=== PATIENT | female | born 1970 | race Caucasian/White ===

== ENCOUNTER 2017-09-01 21:41 | Inpatient (IN) | payer OTHER, MEDICAID ==
[~2017-09-01] VITALS: Ht 167.6 cm; Wt 80.3 kg
[~2017-09-01 21:41] MED LIST: BACL10TA PO; SERT50 PO
[2017-09-01 22:03] VITALS: BP 113/59; PULSE 87; RESP 20; TEMP 98.4; O2SAT 100
--- NOTE | 2017-09-01 22:14 | PD ---
HPI Chief Complaint: Billings[place] act Time Seen by Provider: 21:48 Travel History International Travel<30 days: No Contact w/Intl Traveler<30days: No Traveled to known affect area: No History of Present Illness HPI 47-year-old white female presents to emergency department under Billings[place] act by PD. Patient has a history of MS and is currently going through a divorce with her . She had informed her niece that she had contemplated burning the house down. She states that she has nothing to live for. Her is caring for her 17-year-old son and her 10-year-old son is in foster care. She is assisted at the house by her niece. Patient denies any acute medical complaints. She states that she is frustrated and does not truly want to hurt herself or hurt anyone. Patient is depressed regarding her separation from her and the ongoing proceedings. PFSH Past Medical History Narrative Medical Depression, multiple sclerosis Bipolar Disorder: Yes Depression: Yes Psychiatric: Yes (pt has been diagnosed with depression) Tetanus Vaccination: < 5 Years Past Surgical History Surgical History: No Previous Surgery Social History Alcohol Use: No Tobacco Use: Yes Substance Use: No Allergies-Medications (Allergen,Severity, Reaction): Coded Allergies: penicillin G (Unverified Allergy, Unknown, 05/07/17) Reported Meds & Prescriptions Reported Meds & Active Scripts Active Zoloft (Sertraline HCl) 50 Mg Tab 50 Mg PO DAILY Lioresal 10 Mg Tab (Baclofen) 10 Mg Tab 10 Mg PO TID Review of Systems General / Constitutional: No: Fever Eyes: No: Visual changes HENT: No: Headaches Cardiovascular: No: Chest Pain or Discomfort Respiratory: No: Shortness of Breath Gastrointestinal: No: Abdominal Pain Genitourinary: No: Dysuria Musculoskeletal: Positive: Arthralgias, Limited ROM, Weakness, No: Pain Skin: No Rash Neurologic: Positive: Weakness, Focal Abnormalities, Coordination Problem Psychiatric: Positive: Depression, Mood Disorder, No: Anxiety, Suicidal Ideations, Disorder of Thought, Substance Abuse, Homicidal Ideation Endocrine: No: Polydipsia Hematologic/Lymphatic: No: Easy Bruising Physical Exam Narrative GENERAL: Well-nourished, well-developed patient. Patient has mobility issues due to her MS. SKIN: Warm and dry. HEAD: Normocephalic and atraumatic. EYES: No scleral icterus. No injection or drainage. ENT: No nasal drainage noted. Mucous membranes pink. Airway patent. Fractures of tooth #9 and 10 chronically NECK: Supple, trachea midline. Moves head freely without obvious discomfort. CARDIOVASCULAR: Regular rate and rhythm without murmurs, gallops, or rubs. RESPIRATORY: Breath sounds equal bilaterally. No accessory muscle use. GASTROINTESTINAL: Abdomen soft, non-tender, nondistended. EXTREMITIES: No cyanosis or edema. Contracture of the right knee. She is unable to extend her knee or fully flex it. Patient is able to pivot on her left leg but has inability to truly stand and pivot on her own. BACK: Nontender without obvious deformity. No CVA tenderness. NEURO: Patient is alert and oriented. Patient has weakness and decreased range of motion in the lower extremities much worse in the right leg. She has a contracture of the right knee. Normal speech. PSYCH: No delusions. No auditory or visual hallucinations. Data Data Last Documented VS Vital Signs Date Time Temp Pulse Resp B/P (MAP) Pulse Ox O2 Delivery O2 Flow Rate FiO2 09/01/17 22:03 98.4 87 20 113/59 (77) 100 Orders Orders Complete Blood Count With Diff (09/01/17 22:07) Comprehensive Metabolic Panel (09/01/17 22:07) Thyroid Stimulating Hormone (09/01/17 22:07) Urinalysis - C+S If Indicated (09/01/17 22:07) Ed Urine Pregnancytest Poc (09/01/17 22:07) Psych Screen (09/01/17 22:07) Drug Screen, Random Urine (09/01/17 22:07) Alcohol (Ethanol) (09/01/17 22:07) Salicylates (Aspirin) (09/01/17 22:07) Tylenol (Acetaminophen) (09/01/17 22:07) Labs Laboratory Tests Test 09/01/17 22:05 09/01/17 22:40 Urine Color YELLOW Urine Turbidity HAZY Urine pH 6.0 Urine Specific [place] 1.012 Urine Protein NEG mg/dL Urine Glucose (UA) NEG mg/dL Urine Ketones NEG mg/dL Urine Occult Blood MOD Urine Nitrite NEG Urine Bilirubin NEG Urine Urobilinogen LESS THAN 2.0 MG/DL Urine Leukocyte Esterase TRACE Urine RBC 1 /hpf Urine WBC 2 /hpf Urine Squamous Epithelial Cells 1 /hpf Urine Bacteria RARE /hpf Urine Mucus FEW /lpf Microscopic Urinalysis Comment CULT NOT INDICATED Urine Opiates Screen NEG Urine Barbiturates Screen NEG Urine Amphetamines Screen NEG Urine Benzodiazepines Screen NEG Urine Cocaine Screen NEG Urine Cannabinoids Screen NEG White Blood Count 8.6 TH/MM3 Red Blood Count 4.56 MIL/MM3 Hemoglobin 13.9 GM/DL Hematocrit 40.6 % Mean Corpuscular Volume 89.0 FL Mean Corpuscular Hemoglobin 30.6 PG Mean Corpuscular Hemoglobin Concent 34.4 % Red Cell Distribution Width 14.0 % Platelet Count 210 TH/MM3 Mean Platelet Volume 8.9 FL Neutrophils (%) (Auto) 63.9 % Lymphocytes (%) (Auto) 28.9 % Monocytes (%) (Auto) 5.8 % Eosinophils (%) (Auto) 0.8 % Basophils (%) (Auto) 0.6 % Neutrophils # (Auto) 5.5 TH/MM3 Lymphocytes # (Auto) 2.5 TH/MM3 Monocytes # (Auto) 0.5 TH/MM3 Eosinophils # (Auto) 0.1 TH/MM3 Basophils # (Auto) 0.0 TH/MM3 CBC Comment DIFF FINAL Differential Comment Blood Urea Nitrogen 10 MG/DL Creatinine 0.62 MG/DL Random Glucose 87 MG/DL Total Protein 7.3 GM/DL Albumin 4.0 GM/DL Calcium Level 8.0 MG/DL Alkaline Phosphatase 79 U/L Aspartate Amino Transf (AST/SGOT) 15 U/L Alanine Aminotransferase (ALT/SGPT) 29 U/L Total Bilirubin 0.4 MG/DL Sodium Level 140 MEQ/L Potassium Level 3.8 MEQ/L Chloride Level 106 MEQ/L Carbon Dioxide Level 25.5 MEQ/L Anion Gap 9 MEQ/L Estimat Glomerular Filtration Rate 104 ML/MIN Thyroid Stimulating Hormone 3rd Gen 2.830 uIU/ML Salicylates Level LESS THAN 1.7 MG/DL Acetaminophen Level LESS THAN 2.0 MCG/ML Ethyl Alcohol Level LESS THAN 3 MG/DL MDM Medical Decision Making Medical Screen Exam Complete: Yes Emergency Medical Condition: Yes Medical Record Reviewed: Yes Interpretation(s) Laboratory Tests Test 09/01/17 22:05 09/01/17 22:40 Urine Color YELLOW Urine Turbidity HAZY Urine pH 6.0 Urine Specific [place] 1.012 Urine Protein NEG mg/dL Urine Glucose (UA) NEG mg/dL Urine Ketones NEG mg/dL Urine Occult Blood MOD Urine Nitrite NEG Urine Bilirubin NEG Urine Urobilinogen LESS THAN 2.0 MG/DL Urine Leukocyte Esterase TRACE Urine RBC 1 /hpf Urine WBC 2 /hpf Urine Squamous Epithelial Cells 1 /hpf Urine Bacteria RARE /hpf Urine Mucus FEW /lpf Microscopic Urinalysis Comment CULT NOT INDICATED Urine Opiates Screen NEG Urine Barbiturates Screen NEG Urine Amphetamines Screen NEG Urine Benzodiazepines Screen NEG Urine Cocaine Screen NEG Urine Cannabinoids Screen NEG White Blood Count 8.6 TH/MM3 Red Blood Count 4.56 MIL/MM3 Hemoglobin 13.9 GM/DL Hematocrit 40.6 % Mean Corpuscular Volume 89.0 FL Mean Corpuscular Hemoglobin 30.6 PG Mean Corpuscular Hemoglobin Concent 34.4 % Red Cell Distribution Width 14.0 % Platelet Count 210 TH/MM3 Mean Platelet Volume 8.9 FL Neutrophils (%) (Auto) 63.9 % Lymphocytes (%) (Auto) 28.9 % Monocytes (%) (Auto) 5.8 % Eosinophils (%) (Auto) 0.8 % Basophils (%) (Auto) 0.6 % Neutrophils # (Auto) 5.5 TH/MM3 Lymphocytes # (Auto) 2.5 TH/MM3 Monocytes # (Auto) 0.5 TH/MM3 Eosinophils # (Auto) 0.1 TH/MM3 Basophils # (Auto) 0.0 TH/MM3 CBC Comment DIFF FINAL Differential Comment Blood Urea Nitrogen 10 MG/DL Creatinine 0.62 MG/DL Random Glucose 87 MG/DL Total Protein 7.3 GM/DL Albumin 4.0 GM/DL Calcium Level 8.0 MG/DL Alkaline Phosphatase 79 U/L Aspartate Amino Transf (AST/SGOT) 15 U/L Alanine Aminotransferase (ALT/SGPT) 29 U/L Total Bilirubin 0.4 MG/DL Sodium Level 140 MEQ/L Potassium Level 3.8 MEQ/L Chloride Level 106 MEQ/L Carbon Dioxide Level 25.5 MEQ/L Anion Gap 9 MEQ/L Estimat Glomerular Filtration Rate 104 ML/MIN Thyroid Stimulating Hormone 3rd Gen 2.830 uIU/ML Salicylates Level LESS THAN 1.7 MG/DL Acetaminophen Level LESS THAN 2.0 MCG/ML Ethyl Alcohol Level LESS THAN 3 MG/DL Differential Diagnosis MDM: High Differential diagnoses: Schizophrenia, schizoaffective disorder, bipolar, anxiety, depression, adjustment reaction, mood disorder NOS, ODD, depressive disorder NOS, dementia, dementia with agitation, psychosis NOS, substance induced mood disorder, DMDD, Asperger syndrome, infection,electrolyte abnormality, malingering. Narrative Course Mental health screening discussed with the patient. Psychiatric screen ordered. The patient has been medically cleared. This is medical clearance for psychiatric admission, depression, multiple sclerosis Diagnosis Primary Impression: Medical clearance for psychiatric admission Additional Impressions: Depression Qualified Codes: F33.9 - Major depressive disorder, recurrent, unspecified MS (multiple sclerosis) Condition: Stable Lorenzo Hardy Sep 01, 2017 22:14
[2017-09-01 22:57] LABS: AUTOMATED NEUTROPHIL # 5.5 TH/MM3 (1.8-7.7); BASOPHIL % 0.6 % (0.0-2.0); EOSINOPHIL # 0.1 TH/MM3 (0-0.4); EOSINOPHIL % 0.8 % (0.0-4.0); HEMATOCRIT 40.6 % (35.0-46.0); HEMO FLAGS DIFF FINAL; LYMPH % 28.9 % (9.0-44.0); LYMPHOCYTE # 2.5 TH/MM3 (1.0-4.8); MEAN CORPUSCULAR HEMOGLOBIN 30.6 PG (27.0-34.0); MEAN CORPUSCULAR HGB CONC 34.4 % (32.0-36.0); MONO % 5.8 % (0.0-8.0); NEUT % 63.9 % (16.0-70.0); PLATELET COUNT 210 TH/MM3 (150-450); RED BLOOD COUNT 4.56 MIL/MM3 (4.00-5.30); WHITE BLOOD COUNT 8.6 TH/MM3 (4.0-11.0)
[2017-09-01 23:08] LABS: BACTERIA, URINE RARE /hpf; BLOOD, URINE MOD (NEG); COMMENT (UR) CULT NOT INDICATED; CULTURE IF INDICATED CULT NOT INDICATED; GLUCOSE,URINE NEG (NEG); KETONE, URINE NEG (NEG); MUCUS URINE FEW /lpf (OCC); NITRITE,URINE NEG (NEG); SQUAMOUS EPITHELIAL CELL URINE 1 /hpf (0-5); URINE COLOR YELLOW (YELLW/STRAW)
[2017-09-01 23:17] LABS: ANION GAP 9 MEQ/L (5-15); AST (GOT) 15 U/L (15-37); BICARBONATE 25.5 MEQ/L (21.0-32.0); BLOOD UREA NITROGEN 10 MG/DL (7-18); CHLORIDE 106 MEQ/L (98-107); GLOMERULAR FILTRATION RATE 104 ML/MIN (>89); POTASSIUM 3.8 MEQ/L (3.5-5.1); SODIUM (NA) 140 MEQ/L (136-145)
[2017-09-01 23:18] LABS: ALCOHOL LESS THAN 3 MG/DL (0-5); ALT (GPT) 29 U/L (10-53)
[2017-09-01 23:28] LABS: ALKALINE PHOSPHATASE 79 U/L (45-117); TOTAL BILIRUBIN ADULT 0.4 MG/DL (0.2-1.0)
[2017-09-01 23:30] LABS: ACETAMINOPHEN LESS THAN 2.0 MCG/ML (10.0-30.0)
[2017-09-02] MEDS ORDERED: BACL10TA PO (00:45)
[2017-09-02] MEDS ORDERED: SERT-129 PO (00:45)
[2017-09-02] MEDS ORDERED: DIME240C PO (00:45)
[2017-09-02] MEDS ORDERED: TRAZ100T10 PO (00:45)
[2017-09-02 00:52] VITALS: BP 102/62; PULSE 84; RESP 18; TEMP 98.3; O2SAT 97
[2017-09-02 06:00] VITALS: BP 113/74; PULSE 91; RESP 18; O2SAT 98
--- NOTE | 2017-09-02 16:59 | HHI.HP ---
Provisional Diagnosis Admission Date [facility] I. Adjustment disorder with depressed mood Certification of Person's Competence To Provide Express and Informed Consent I have personally examined Laury Garcia , a person being served at [facility] on, Sep 02, 2017 16:51. Express and informed consent means consent voluntarily given in writing, by a competent person, after sufficient explanation and disclosure of the subject matter involved to enable the person to make a knowing and willful decision without any element of force, fraud, deceit, duress, or other form of constraint or coercion. This person is 18 years of age or older, is not now known to be incompetent to consent to treatment with a guardian advocate, and does not have a health care surrogate or proxy currently making medical treatment decisions. I have found this person to be one of the following: [X] Competent to provide express and informed consent, as defined above, for voluntary admission to this facility and is competent to provide express and informed consent for treatment. He/she has the consistent capacity to make well reasoned, willful, and knowing decisions concerning his or her medical or mental health treatment. The person fully and consistently understands the purpose of the admission for examination/placement and is fully capable of personally exercising all rights [place] Incompetent to provide express and informed consent to voluntary admission, and this is incompetent to provide express and informed consent to treatment. The person must be transferred to involuntary status and a petition for a guardian advocate filed with the Circuit Court. [] Refusing to provide express and informed consent to voluntary admission but is competent to provide express and informed consent for treatment. The person must be discharged or transferred to involuntary status. Form shall be completed within 24 hours of a person's arrival at the receiving facility and filed in the clinical record of each person: 1. Admitted on a voluntary basis 2. Permitted to provide express and informed consent to his/her own treatment 3. Allowed to transfer from involuntary to voluntary status 4. Prior to permitting a person to consent to his or her own treatment after having been previously found incompetent to consent to treatment. History of Present Illness Capacity: Has Capacity HPI This is a 47-year-old female with a history of multiple sclerosis, presenting under a Billingsley act initiated by [facility]'s office. According to the Billingsley act, the patient has admitted to being depressed since she is going through a separation and divorce with her . She told her niece, who is her caregiver at home that she wanted to burn the house down and that she was tired of living. She reportedly said she would rather give up on life and . Apparently in the main emergency department here at [facility], the patient stated she was not suicidal and that she was simply venting her frustration. However, with this physician, she indicated that she was very depressed and that she did have thoughts of suicide. She describes multiple symptoms of depression for several weeks, including depressed mood, anhedonia, suicidal thinking, anxiety, feelings of hopelessness and helplessness, decreased energy, irritability, social withdrawal, insomnia and appetite disturbance. She denies a history of alcoholism or substance abuse. She does have 2 children, who she apparently will not have custody of. There is some suggestion in her medical record that she has a history of bipolar disorder. Review of Systems Psychiatric: COMPLAINS OF: Anxiety, Mood changes, Suicidal Ideation Except as stated in HPI: all other systems reviewed are Neg Past Psych History Psychological trauma history Unknown for psychological trauma. Violence risk - others (6 mos) Minimal to moderate Violence risk - self (6 mos) High Substance Abuse History Drugs/Alcohol past 12 months Denied Past Family Social History Coded Allergies: penicillin G (Unverified Allergy, Unknown, 05/07/17) Reported Medications Dimethyl Fumarate (Tecfidera) 240 Mg Cap, 240 MG PO BID for Multiple sclerosis, #60 CAP 0 Refills 09/02/17 Trazodone (Trazodone) 100 Mg Tablet, 100 MG PO HS for Control Depression, #30 TAB 0 Refills 09/02/17 Baclofen (Baclofen) 10 Mg Tab, 10 MG PO TID for Muscle Spasm, TAB 0 Refills 09/02/17 Sertraline (Sertraline) 100 Mg Tab, 100 MG PO DAILY, #30 TAB 0 Refills 09/02/17 Discontinued Scripts Sertraline Hcl (Zoloft) 50 Mg Tab, 50 MG PO DAILY for health, #30 TAB 0 Refills Prov:Donovan Santos MD 05/17/16 Baclofen (Lioresal 10 Mg Tab) 10 Mg Tab, 10 MG PO TID for health, #90 TAB 0 Refills Prov:Donovan Santos MD 05/17/16 Family Psych History Unknown Social History Patient is apparently unemployed. She is disabled from work. She does not have a history of alcoholism or substance abuse. Her is no longer wanting to be supportive of her. Patient does have 2 children, one of which already lives away from her. The other child is being taken by her . Patient's Strengths (min. 2) Verbal and has access to healthcare. Physical Exam GENERAL: SKIN: Warm and dry. HEAD: Normocephalic. EYES: No scleral icterus. No injection or drainage. NECK: Supple, trachea midline. No JVD or lymphadenopathy. CARDIOVASCULAR: Regular rate and rhythm without murmurs, gallops, or rubs. RESPIRATORY: Breath sounds equal bilaterally. No accessory muscle use. GASTROINTESTINAL: Abdomen soft, non-tender, nondistended. MUSCULOSKELETAL: No cyanosis, or edema. BACK: Nontender without obvious deformity. No CVA tenderness. Vital Signs Vital Signs Date Time Temp Pulse Resp B/P (MAP) Pulse Ox O2 Delivery O2 Flow Rate FiO2 09/02/17 12:13 09/02/17 06:00 91 18 98 Room Air 09/02/17 00:52 98.3 Lab Results Test 09/01/17 22:05 09/01/17 22:40 Urine Color YELLOW Urine Turbidity HAZY Urine pH 6.0 Urine Specific [place] 1.012 Urine Protein NEG mg/dL Urine Glucose (UA) NEG mg/dL Urine Ketones NEG mg/dL Urine Occult Blood MOD Urine Nitrite NEG Urine Bilirubin NEG Urine Urobilinogen LESS THAN 2.0 MG/DL Urine Leukocyte Esterase TRACE Urine RBC 1 /hpf Urine WBC 2 /hpf Urine Squamous Epithelial Cells 1 /hpf Urine Bacteria RARE /hpf Urine Mucus FEW /lpf Microscopic Urinalysis Comment CULT NOT INDICATED Urine Opiates Screen NEG Urine Barbiturates Screen NEG Urine Amphetamines Screen NEG Urine Benzodiazepines Screen NEG Urine Cocaine Screen NEG Urine Cannabinoids Screen NEG White Blood Count 8.6 TH/MM3 Red Blood Count 4.56 MIL/MM3 Hemoglobin 13.9 GM/DL Hematocrit 40.6 % Mean Corpuscular Volume 89.0 FL Mean Corpuscular Hemoglobin 30.6 PG Mean Corpuscular Hemoglobin Concent 34.4 % Red Cell Distribution Width 14.0 % Platelet Count 210 TH/MM3 Mean Platelet Volume 8.9 FL Neutrophils (%) (Auto) 63.9 % Lymphocytes (%) (Auto) 28.9 % Monocytes (%) (Auto) 5.8 % Eosinophils (%) (Auto) 0.8 % Basophils (%) (Auto) 0.6 % Neutrophils # (Auto) 5.5 TH/MM3 Lymphocytes # (Auto) 2.5 TH/MM3 Monocytes # (Auto) 0.5 TH/MM3 Eosinophils # (Auto) 0.1 TH/MM3 Basophils # (Auto) 0.0 TH/MM3 CBC Comment DIFF FINAL Differential Comment Blood Urea Nitrogen 10 MG/DL Creatinine 0.62 MG/DL Random Glucose 87 MG/DL Total Protein 7.3 GM/DL Albumin 4.0 GM/DL Calcium Level 8.0 MG/DL Alkaline Phosphatase 79 U/L Aspartate Amino Transf (AST/SGOT) 15 U/L Alanine Aminotransferase (ALT/SGPT) 29 U/L Total Bilirubin 0.4 MG/DL Sodium Level 140 MEQ/L Potassium Level 3.8 MEQ/L Chloride Level 106 MEQ/L Carbon Dioxide Level 25.5 MEQ/L Anion Gap 9 MEQ/L Estimat Glomerular Filtration Rate 104 ML/MIN Thyroid Stimulating Hormone 3rd Gen 2.830 uIU/ML Salicylates Level LESS THAN 1.7 MG/DL Acetaminophen Level LESS THAN 2.0 MCG/ML Ethyl Alcohol Level LESS THAN 3 MG/DL Mental Status Examination Appearance: Appropriate Consciousness: Alert Orientation: x4 Motor Activity: Normal gait Speech: Unremarkable Language: Adequate Fund of Knowledge: Adequate Attention and Concentration: Adequate Memory: Unremarkable Mood: Sad, Anxious Affect: Sad, Anxious Thought Process & Associations: Intact Thought Content: Appropriate Hallucination Type: None Delusion Type: None Suicidal Ideation: Yes Suicidal Plan: No Suicidal Intention: No Homicidal Ideation: No Homicidal Plan: No Homicidal Intention: No Insight: Fair Judgment: Impulsive Assessment & Plan Problem List: (1) Adjustment disorder with depressed mood ICD Codes: F43.21 - Adjustment disorder with depressed mood Assessment & Plan Estimated LOS: days. 47-year-old female with multiple sclerosis, presents under a Billingsley act for wanting to burn down the house and commit suicide. Patient continues to be depressed and distraught and this physician does not feel she is safe to go home. She is therefore being admitted for further evaluation and treatment. This physician has ordered a CBC and comprehensive metabolic panel to determine if any infectious process or metabolic process is causing or contributing to her depression. Also ordered is a thyroid-stimulating hormone level, vitamin B- 12 level and vitamin D level, to determine if deficiencies in these areas is causing or contributing to her depression. Also ordered is a lipid panel and hemoglobin A1c as the patient is overweight and psychotropic medicines may exacerbate this underlying problem. Furthermore, an EKG is being ordered to assess the patient's cardiac conduction status, as multiple psychotropic medicines may adversely affect the conduction system of her heart. This physician spoke with the patient's nurse, Sushil, regarding the patient's recent behavior in the emergency department. Case management is also being involved to assist with information gathering and disposition planning. Romero Rosenthal MD Sep 02, 2017 16:59
[2017-09-02] MEDS ORDERED: LORazepam 2 MG/ML VIAL IM PRN (17:00)
[2017-09-02] MEDS ORDERED: ALUMINUM/MAGNESIUM/SIMETH 30 ML CUP PO PRN (17:00)
[2017-09-02] MEDS ORDERED: MAGNESIUM HYDROXIDE SUSP 30 ML CUP PO PRN (17:00)
[2017-09-02 18:01] VITALS: BP 117/61; PULSE 88; RESP 18; TEMP 98.1; O2SAT 100
[2017-09-02] MEDS: ACETAMINOPHEN 325 MG TAB PO PRN (20:48)
[2017-09-03 06:08] VITALS: BP 100/63; PULSE 79; RESP 16; TEMP 97.5; O2SAT 98
[2017-09-03 10:12] LABS: AUTOMATED NEUTROPHIL # 3.6 TH/MM3 (1.8-7.7); BASOPHIL % 0.5 % (0.0-2.0); EOSINOPHIL # 0.1 TH/MM3 (0-0.4); EOSINOPHIL % 1.1 % (0.0-4.0); HEMATOCRIT 40.6 % (35.0-46.0); HEMO FLAGS DIFF FINAL; LYMPH % 35.5 % (9.0-44.0); LYMPHOCYTE # 2.2 TH/MM3 (1.0-4.8); MEAN CORPUSCULAR HEMOGLOBIN 30.6 PG (27.0-34.0); MONO % 5.7 % (0.0-8.0); NEUT % 57.2 % (16.0-70.0); PLATELET COUNT 190 TH/MM3 (150-450); RED BLOOD COUNT 4.51 MIL/MM3 (4.00-5.30); RED CELL DISTRIBUTION WIDTH 13.9 % (11.6-17.2); WHITE BLOOD COUNT 6.2 TH/MM3 (4.0-11.0)
[2017-09-03 10:42] LABS: ANION GAP 9 MEQ/L (5-15); AST (GOT) 10 U/L (15-37); BICARBONATE 26.5 MEQ/L (21.0-32.0); BLOOD UREA NITROGEN 12 MG/DL (7-18); CHLORIDE 105 MEQ/L (98-107); GLOMERULAR FILTRATION RATE 69 ML/MIN (>89); POTASSIUM 4.3 MEQ/L (3.5-5.1); SODIUM (NA) 140 MEQ/L (136-145)
[2017-09-03 10:43] LABS: ALT (GPT) 27 U/L (10-53)
[2017-09-03 11:08] LABS: ALKALINE PHOSPHATASE 78 U/L (45-117); LDL CHOLESTEROL 92 MG/DL (0-99); TOTAL BILIRUBIN ADULT 0.5 MG/DL (0.2-1.0)
[2017-09-03] MEDS: SERTRALINE HCL 100 MG TAB PO SCH (13:29)
[2017-09-03] MEDS: BACLOFEN 10 MG TAB PO SCH ×2 (13:29→17:30)
[2017-09-03 13:38] LABS: HEMOGLOBIN A1a 1.2 %; HEMOGLOBIN A1b 0.9 %; HEMOGLOBIN Ao 85.8 %; HEMOGLOBIN F 1.4 %; HEMOGLOBIN P3 3.1 %
--- NOTE | 2017-09-03 14:32 | HHI.PYPN ---
Subjective Remarks Patient is a 47-year-old woman, , with 2 children one whom lives with the father the other who is in foster care, unemployed on disability benefits, with past psychiatric history of depression with one previous psychiatric hospitalization here at [place] in April 2016, 1 remote suicide attempt in her 20s via overdose, no history of self-injurious behavior, currently followed by an outpatient psychiatrist, Dr. Sawyer, currently on Zoloft 100 mg by mouth daily, amitriptyline 10 mg by mouth at bedtime, with a past medical history of multiple sclerosis, who was brought in under [place] by police after patient stated she was going to burn down the house as well as stating that she has available to live for which she was transferred to the inpatient psychiatry/medical unit for further evaluation and management. As per the admission note patient denied suicidal ideations but did report feeling depressed and later admitted to having thoughts of not wanting to be alive. Patient currently domiciled with niece who was the unofficial caregiver whom she didn't having relational discord with. Patient states that she had called the police herself and put herself under [place] act stating that she was going through a divorce and difficulties with her niece and daughter having been told that her is "yuliya* my mother". Patient states that they keep telling her negative things about her which has been affecting her recently. Patient reports that she has been from her since 2014 but states that she continues to love him and has hopes to return back to him. Patient reports having decreased concentration and increased feeling sad and depressed as well as having difficulties with her niece bring her to see her son whom she has a right to see was per week. She states that her current stressors are not having her children around her, her separation from her . Patient admitted to having stated to her niece and daughter that she wanted to burn down the house and wanted to give up. Patient noted to be tearful during interview. Patient states that she feels depressed and wants to give up at this time stated that she's had thoughts of not wanting to be alive "all the time". Currently states feeling all right, continues to have SI, denies HI, denies having thoughts of wanting to burn down the house at this time. Patient also states that she ran out of her medication one week prior to admission. Review of Systems Except as stated in HPI: all other systems reviewed are Neg Mental Status Examination Appearance: Appropriate Consciousness: Alert Orientation: x4 Motor Activity: Other Speech: Unremarkable Language: Adequate Fund of Knowledge: Adequate Attention and Concentration: Adequate Memory: Unremarkable Mood: Sad, Anxious Affect: Sad, Anxious Thought Process & Associations: Intact Thought Content: Appropriate Hallucination Type: None Delusion Type: None Suicidal Ideation: Yes Suicidal Plan: No Suicidal Intention: No Homicidal Ideation: No Homicidal Plan: No Homicidal Intention: No Insight: Fair Judgment: Impulsive Results Labs Labs reviewed Test 09/03/17 09:46 White Blood Count 6.2 TH/MM3 Red Blood Count 4.51 MIL/MM3 Hemoglobin 13.8 GM/DL Hematocrit 40.6 % Mean Corpuscular Volume 90.0 FL Mean Corpuscular Hemoglobin 30.6 PG Mean Corpuscular Hemoglobin Concent 34.0 % Red Cell Distribution Width 13.9 % Platelet Count 190 TH/MM3 Mean Platelet Volume 9.0 FL Neutrophils (%) (Auto) 57.2 % Lymphocytes (%) (Auto) 35.5 % Monocytes (%) (Auto) 5.7 % Eosinophils (%) (Auto) 1.1 % Basophils (%) (Auto) 0.5 % Neutrophils # (Auto) 3.6 TH/MM3 Lymphocytes # (Auto) 2.2 TH/MM3 Monocytes # (Auto) 0.4 TH/MM3 Eosinophils # (Auto) 0.1 TH/MM3 Basophils # (Auto) 0.0 TH/MM3 CBC Comment DIFF FINAL Differential Comment Blood Urea Nitrogen 12 MG/DL Creatinine 0.88 MG/DL Random Glucose 143 MG/DL Total Protein 7.3 GM/DL Albumin 4.0 GM/DL Calcium Level 9.2 MG/DL Alkaline Phosphatase 78 U/L Aspartate Amino Transf (AST/SGOT) 10 U/L Alanine Aminotransferase (ALT/SGPT) 27 U/L Total Bilirubin 0.5 MG/DL Sodium Level 140 MEQ/L Potassium Level 4.3 MEQ/L Chloride Level 105 MEQ/L Carbon Dioxide Level 26.5 MEQ/L Anion Gap 9 MEQ/L Estimat Glomerular Filtration Rate 69 ML/MIN Hemoglobin A1c 5.2 % Triglycerides Level 66 MG/DL Cholesterol Level 160 MG/DL LDL Cholesterol 92 MG/DL HDL Cholesterol 55.0 MG/DL Cholesterol/HDL Ratio 2.90 RATIO Vitamin B12 Level 495 PG/ML 25-Hydroxy Vitamin D Total 13.8 ng/ML Thyroid Stimulating Hormone 3rd Gen 1.580 uIU/ML Vitals/IOs Vital Signs Date Time Temp Pulse Resp B/P (MAP) Pulse Ox O2 Delivery O2 Flow Rate FiO2 09/03/17 06:08 97.5 79 16 100/63 (75) 98 09/02/17 06:00 Room Air Intake and Output 09/03/17 09/03/17 09/04/17 08:00 16:00 00:00 Intake Total 240 ml 240 ml Balance 240 ml 240 ml Assessment & Plan Problem List: (1) Adjustment disorder with depressed mood ICD Codes: F43.21 - Adjustment disorder with depressed mood Assessment & Plan Patient is a 47-year-old woman who carries a diagnosis of depression has a past medical history of multiple sclerosis, currently domiciled with her niece who is the unofficial caregiver whom she been having relationship discord with and contributing to her current stress as well as undergoing continued depression in the context of separation from her , having lost custody of her children, and noncompliance with medications for one week as well as currently endorsing thoughts of not wanting to be alive. Patient to continue current sertraline 100 mg by mouth daily and trazodone 100 mg by mouth at bedtime. Hospital consult requested to the patient reporting left ear pain as well as recommendations for management of medical issues. Collateral for some pending. Patient agrees for voluntary admission at this time. Discharge planning in progress Justification for Cont. Inpt. At risk for further decompensation if at lower level of care Discharge Planning Patient to return back to her residence was psychiatrically stable Fermin Coombs MD Sep 03, 2017 14:32
[2017-09-03] MEDS: CHOLECALCIFEROL (VIT D3) 5000 UNIT CAP PO SCH (15:45)
--- NOTE | 2017-09-03 16:20 | PD.CONS ---
HPI Service [facility] Consult Requested By Psychiatry team Reason for Consult Left ear pain Primary Care Physician No Primary Care Physician Diagnoses: History of Present Illness Patient is a 47-year-old female with primary medical history of MS who came to the hospital under [place] secondary to suicidal ideation. Patient is admitted to inpatient medical psychiatry unit for further evaluation. Consulted for medical management left ear pain, MS. Patient seen and examined today lying in bed. Reports she is been having ear pain about 2 days now. States that when her ears are painful it radiates towards her jaw and she can feel it in her teeth and hurting her teeth and mouth. She also reports sinus congestion but no postnasal drip. Frontal sinuses maxillary sinus pain reported. Denies any cough, expectoration. Denies any shortness of breath, dyspnea. Denies fevers, chills, nausea, vomiting, diarrhea, dysuria. Review of Systems Except as stated in HPI: all other systems reviewed are Neg Past Family Social History Allergies: Coded Allergies: penicillin G (Unverified Allergy, Unknown, 05/07/17) Past Medical History MS Anxiety, depression Questionable bipolar disorder Past Surgical History None Reported Medications Reported Meds & Active Scripts Active Reported Tecfidera (Dimethyl Fumarate) 240 Mg Cap 240 Mg PO BID Trazodone (Trazodone HCl) 100 Mg Tablet 100 Mg PO HS Baclofen 10 Mg Tab 10 Mg PO TID Sertraline (Sertraline HCl) 100 Mg Tab 100 Mg PO DAILY Active Ordered Medications Current Medications Medications (Trade) Dose Ordered Sig/Bernardino Route Start Time Stop Time Status Last Admin (Ativan) 1 mg Q6H PRN PO 09/02/17 17:00 (Ativan Inj) 1 mg Q6H PRN IM 09/02/17 17:00 (Tylenol) 650 mg Q4H PRN PO 09/02/17 17:00 09/02/17 20:48 (Milk Of Magnesia Liq) 30 ml DAILY PRN PO 09/02/17 17:00 (Mag-Al Plus Susp Liq) 30 ml Q6H PRN PO 09/02/17 17:00 (Lioresal) 10 mg TID PO 09/03/17 13:00 09/03/17 13:29 (Zoloft) 100 mg DAILY PO 09/03/17 10:15 09/03/17 13:29 Patient Own Medication PT OWN MED: *TECFID... BID PO 09/03/17 21:00 Future Hold (Desyrel) 100 mg HS PO 09/03/17 21:00 Family History Family history of diabetes, mother, father, siblings Social History Denies alcohol use. Reports tobacco use but has not smoked in few days. States she smokes a pack in 4 days. Denies illicit drug use Physical Exam Vital Signs Vital Signs Date Time Temp Pulse Resp B/P (MAP) Pulse Ox O2 Delivery O2 Flow Rate FiO2 09/03/17 06:08 97.5 79 16 100/63 (75) 98 09/02/17 18:01 98.1 88 18 117/61 (79) 100 Physical Exam GENERAL: This is an obese, well-developed patient, in no apparent distress. SKIN: No rashes, ecchymoses or lesions. Cool and dry. HEAD: Normocephalic. No temporal or scalp tenderness. Frontal and maxillary sinus tenderness. EYES: Pupils equal round and reactive. Extraocular motions intact. No scleral icterus. No injection or drainage. ENT: Nose without bleeding. Throat without erythema. Uvula midline. Airway patent. Missing teeth, poor dentition, edematous upper maxillary area. Tenderness in the tragus area. TM erythematous no effusion. NECK: Trachea midline. Supple. CARDIOVASCULAR: Regular rate and rhythm without murmurs, gallops, or rubs. RESPIRATORY: Clear to auscultation. Breath sounds equal bilaterally. No wheezes , rales, or rhonchi. GASTROINTESTINAL: Abdomen soft, obese, nondistended. BS Active x4. No guarding. MUSCULOSKELETAL: Extremities without clubbing, cyanosis, or edema. NEUROLOGICAL: Awake and alert. Cranial nerves II through XII intact. Motor and sensory grossly within normal limits. Normal speech. Laboratory Laboratory Tests Test 09/03/17 09:46 White Blood Count 6.2 Red Blood Count 4.51 Hemoglobin 13.8 Hematocrit 40.6 Mean Corpuscular Volume 90.0 Mean Corpuscular Hemoglobin 30.6 Mean Corpuscular Hemoglobin Concent 34.0 Red Cell Distribution Width 13.9 Platelet Count 190 Mean Platelet Volume 9.0 Neutrophils (%) (Auto) 57.2 Lymphocytes (%) (Auto) 35.5 Monocytes (%) (Auto) 5.7 Eosinophils (%) (Auto) 1.1 Basophils (%) (Auto) 0.5 Neutrophils # (Auto) 3.6 Lymphocytes # (Auto) 2.2 Monocytes # (Auto) 0.4 Eosinophils # (Auto) 0.1 Basophils # (Auto) 0.0 CBC Comment DIFF FINAL Differential Comment Blood Urea Nitrogen 12 Creatinine 0.88 Random Glucose 143 Total Protein 7.3 Albumin 4.0 Calcium Level 9.2 Alkaline Phosphatase 78 Aspartate Amino Transf (AST/SGOT) 10 Alanine Aminotransferase (ALT/SGPT) 27 Total Bilirubin 0.5 Sodium Level 140 Potassium Level 4.3 Chloride Level 105 Carbon Dioxide Level 26.5 Anion Gap 9 Estimat Glomerular Filtration Rate 69 Hemoglobin A1c 5.2 Triglycerides Level 66 Cholesterol Level 160 LDL Cholesterol 92 HDL Cholesterol 55.0 Cholesterol/HDL Ratio 2.90 Vitamin B12 Level 495 25-Hydroxy Vitamin D Total 13.8 Thyroid Stimulating Hormone 3rd Gen 1.580 Result Diagram: 09/03/1746 09/03/17 0946 Assessment and Plan Problem List: (1) Otitis media ICD Code: H66.90 - Otitis media, unspecified, unspecified ear (2) Adjustment disorder with depressed mood ICD Code: F43.21 - Adjustment disorder with depressed mood (3) MS (multiple sclerosis) ICD Code: G35 - Multiple sclerosis Status: Acute (4) Depression ICD Code: F32.9 - Major depressive disorder, single episode, unspecified Status: Acute Assessment and Plan Patient is a 47-year-old female with primary medical history of MS who came to the hospital under [place] secondary to suicidal ideation. Patient is admitted to inpatient medical psychiatry unit for further evaluation. Consulted for medical management left ear pain, MS. Suicidal Ideation, Anxiety - Managed by psychiatry team Otitis Media, Acute Acute bacterial sinusitis Sinus pain, sinus congestion - Saline Nasal Holiday PRN - Zyrtec at HS - Cefuroxime 250mg BID x10 days - Monitor Relief MS - Continue with home meds DVT Early Ambulation - PT eval Code Status Full code Discussed Condition With Patient, nursing, Dr. Rivera Problem Qualifiers (1) Depression: Qualified Codes: F33.9 - Major depressive disorder, recurrent, unspecified Natividad Holliday Sep 03, 2017 16:20
[2017-09-03] MEDS ORDERED: SODIUM CHLORIDE 0.65% NASAL SPRAY 45 ML BTL EACH NARE PRN (16:30)
--- NOTE | 2017-09-03 17:55 | EKG ---
Date Performed: 09/03/2017 Time Performed: 07:37:54 PTAGE: 47 years EKG: Sinus rhythm NORMAL ECG NO PREVIOUS TRACING DOCTOR: Jose G Pagan Interpretating Date/Time 09/03/2017 17:54:35
[2017-09-03 18:00] VITALS: BP 103/75; PULSE 93; RESP 18; TEMP 98.1; O2SAT 98
[2017-09-03] MEDS: CETIRIZINE HCL 10 MG TAB PO SCH (20:45)
[2017-09-03] MEDS: CEFUROXIME AXETIL 250 MG TAB PO SCH (20:45)
[2017-09-03] MEDS: LORazepam 1 MG TAB PO PRN (20:45)
[2017-09-03] MEDS: traZODone HCL 100 MG TAB PO SCH (20:45)
[2017-09-03] MEDS: ACETAMINOPHEN 325 MG TAB PO PRN (20:46)
[2017-09-03] MEDS ORDERED: TECFIDERA 240 MG PO SCH (21:00)
[2017-09-04 05:58] VITALS: BP 118/58; PULSE 77; RESP 16; TEMP 97.4; O2SAT 96
[2017-09-04] MEDS: CHOLECALCIFEROL (VIT D3) 5000 UNIT CAP PO SCH (08:05)
[2017-09-04] MEDS: BACLOFEN 10 MG TAB PO SCH ×4 (08:05→21:15)
[2017-09-04] MEDS: SERTRALINE HCL 100 MG TAB PO SCH (08:05)
[2017-09-04] MEDS: CEFUROXIME AXETIL 250 MG TAB PO SCH ×2 (08:05→21:15)
--- NOTE | 2017-09-04 09:29 | HHI.PYPN ---
Subjective Remarks Patient is seen for follow-up, chart reviewed. Patient found lying in hospital bed, cooperative today. Patient states that she been sleeping well, no problem eating and drinking, recently's was seen by hospitalist for ear pain was started on [place] treatment. Patient states that she has not spoken to her niece since admission but plans on calling her today. Patient denies any suicidal ideations, or thoughts of burning down the house. Patient has not yet contacted her niece which was part of her distress upon admission. Unclear whether this will be an ongoing stressor for patient when she goes home. Patient states that she plans on taking her niece out of the home when she receives her money for the month. It is apparent the patient require services due to sequelae from MS which will need to be explored prior to her discharge for safe discharge plan. Review of Systems Except as stated in HPI: all other systems reviewed are Neg Mental Status Examination Appearance: Appropriate Consciousness: Alert Orientation: x4 Motor Activity: Other Speech: Unremarkable Language: Adequate Fund of Knowledge: Adequate Attention and Concentration: Adequate Memory: Unremarkable Mood: Sad, Anxious Affect: Sad (less so today), Anxious Thought Process & Associations: Intact Thought Content: Appropriate Hallucination Type: None Delusion Type: None Suicidal Ideation: Yes (denies today) Suicidal Plan: No Suicidal Intention: No Homicidal Ideation: No Homicidal Plan: No Homicidal Intention: No Insight: Fair Judgment: Impulsive Results Labs Labs reviewed Test 09/03/17 09:46 White Blood Count 6.2 TH/MM3 Red Blood Count 4.51 MIL/MM3 Hemoglobin 13.8 GM/DL Hematocrit 40.6 % Mean Corpuscular Volume 90.0 FL Mean Corpuscular Hemoglobin 30.6 PG Mean Corpuscular Hemoglobin Concent 34.0 % Red Cell Distribution Width 13.9 % Platelet Count 190 TH/MM3 Mean Platelet Volume 9.0 FL Neutrophils (%) (Auto) 57.2 % Lymphocytes (%) (Auto) 35.5 % Monocytes (%) (Auto) 5.7 % Eosinophils (%) (Auto) 1.1 % Basophils (%) (Auto) 0.5 % Neutrophils # (Auto) 3.6 TH/MM3 Lymphocytes # (Auto) 2.2 TH/MM3 Monocytes # (Auto) 0.4 TH/MM3 Eosinophils # (Auto) 0.1 TH/MM3 Basophils # (Auto) 0.0 TH/MM3 CBC Comment DIFF FINAL Differential Comment Blood Urea Nitrogen 12 MG/DL Creatinine 0.88 MG/DL Random Glucose 143 MG/DL Total Protein 7.3 GM/DL Albumin 4.0 GM/DL Calcium Level 9.2 MG/DL Alkaline Phosphatase 78 U/L Aspartate Amino Transf (AST/SGOT) 10 U/L Alanine Aminotransferase (ALT/SGPT) 27 U/L Total Bilirubin 0.5 MG/DL Sodium Level 140 MEQ/L Potassium Level 4.3 MEQ/L Chloride Level 105 MEQ/L Carbon Dioxide Level 26.5 MEQ/L Anion Gap 9 MEQ/L Estimat Glomerular Filtration Rate 69 ML/MIN Hemoglobin A1c 5.2 % Triglycerides Level 66 MG/DL Cholesterol Level 160 MG/DL LDL Cholesterol 92 MG/DL HDL Cholesterol 55.0 MG/DL Cholesterol/HDL Ratio 2.90 RATIO Vitamin B12 Level 495 PG/ML 25-Hydroxy Vitamin D Total 13.8 ng/ML Thyroid Stimulating Hormone 3rd Gen 1.580 uIU/ML Vitals/IOs Vital Signs Date Time Temp Pulse Resp B/P (MAP) Pulse Ox O2 Delivery O2 Flow Rate FiO2 09/04/17 05:58 97.4 77 16 118/58 (78) 96 09/02/17 06:00 Room Air Intake and Output 09/04/17 09/04/17 09/05/17 08:00 16:00 00:00 Intake Total 480 ml Balance 480 ml Assessment & Plan Problem List: (1) Adjustment disorder with depressed mood ICD Codes: F43.21 - Adjustment disorder with depressed mood Assessment & Plan Patient at this time denies any suicidality or thoughts of wanting to burn down her house but continues to be noted to have depressive symptoms. Patient states tolerating medications well. Unclear if patient has reliable support services in place as niece has been did not unofficial caregiver for her but currently has conflicts in duration discord with her as well as these being part of the initial stressor that brought her to the hospital. Collateral from niece pending. Continue current treatment for now. Plan to evaluate possible services that she will require ongoing. Discharge planning in progress Justification for Cont. Inpt. At risk for further decompensation if at lower level of care Discharge Planning Patient to return home with services upon psychiatric stabilization but also possibility that patient may require halfway services due to her current physical status from her multiple sclerosis. Fermin Coombs MD Sep 04, 2017 09:29
--- NOTE | 2017-09-04 09:50 | HHI.PR ---
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 c/o left ear pain sinuses hurt teeth hurt has been having those symptoms for past one month- has been living on tylenol and advil did not improve with zyrtec and ceftrizine Objective Vital Signs Date Time Temp Pulse Resp B/P (MAP) Pulse Ox O2 Delivery O2 Flow Rate FiO2 09/04/17 05:58 97.4 77 16 118/58 (78) 96 09/03/17 18:00 98.1 93 18 103/75 (84) 98 I/O 09/03/17 09/03/17 09/03/17 09/04/17 09/04/17 09/04/17 07:00 15:00 23:00 07:00 15:00 23:00 Intake Total 240 ml 240 ml 480 ml 0 ml 480 ml Balance 240 ml 240 ml 480 ml 0 ml 480 ml Intake Oral 240 ml 240 ml 480 ml 0 ml 480 ml # Voids 2 2 1 Result Diagram: 09/03/17 0946 09/03/17 0946 Objective Remarks awake, alert, oriented, lying in bed initially, needed 2 person assist to go to wheel chair due to her locked RLE from MS was participating in dayroom activities GENERAL: This is a well-nourished, well-developed patient, in no apparent distress. SKIN: No rashes, ecchymoses or lesions. Cool and dry. HEAD: Atraumatic. Normocephalic. No temporal or scalp tenderness. EYES: No scleral icterus. No injection or drainage. ENT: Nose without bleeding, purulent drainage or septal hematoma. . Airway patent. pain on palpation at bilateral auricles, and TMJ per pt's report NECK: Trachea midline. No JVD . Supple, nontender, no meningeal signs. CARDIOVASCULAR: Regular rate and rhythm without murmurs, gallops, or rubs. RESPIRATORY: Clear to auscultation. Breath sounds equal bilaterally. No wheezes , rales, or rhonchi. GASTROINTESTINAL: Abdomen soft, non-tender, nondistended. . No guarding. MUSCULOSKELETAL: Extremities without clubbing, cyanosis, or edema.. No calf tenderness NEUROLOGICAL: Awake and alert. RLE weakness and stiffness, unable to stand up on her own, Normal speech. A/P Assessment and Plan Impression: hyperglycemia - will check hba1c left ear pain of one month duration - now stating bilateral ear pain, some sinus pains, headaches RLE locked- with mostly bed bound= due to MS hx of MS hx of depression Plan: ct head ct sinus start lovenox for dvt prophylaxis pt eval ct ceftrizine and cefuroxime for now - completion dates written on orders will sign off on the case if imaging studies negative pt can be discharged with ceftrizine and cefuroxime prescription (with completion of course dates) if she is to be discharged prior to those dates. Discharge Planning per psychiatry Bobby Rivera MD Sep 04, 2017 09:50
--- NOTE | 2017-09-04 12:14 | PD.TTN ---
Patient Problems 1. Discharge planning 2. Medication compliance 3. Knowledge deficit 4. Lack of coping skills Progress Toward Goals Provider Present: Dr. Navjot Coombs Provider Input: 09/04/17 patient is being assess for treatment needs Nurse(s) Present: ANGELITA Gleason Nurse(s) Input: Patient is weak requires total care assistance, she is eating and taking her medication, patient is limited with what she is able to do for herself Psychiatric Counselors Present: FADY Villanueva Psych Therapist Input: 09/04/17 counselor will link patient with home health Group Spec/RT/OT/COULTER Present: [facility] Group Spec/RT/OT/COULTER Input: 09/04/17 patient participates with limited groups due to physical needs Documentation Scribe: FADY Villanueva Sandra LMHC Sep 04, 2017 12:14
[2017-09-04] MEDS: ENOXAPARIN SODIUM 40 MG/0.4 ML SYRINGE SQ SCH (12:15)
[2017-09-04 16:46] LABS: HEMOGLOBIN A1a 1.2 %; HEMOGLOBIN A1b 0.9 %; HEMOGLOBIN Ao 86.3 %; HEMOGLOBIN F 1.4 %; HEMOGLOBIN LA1C 1.5 %
--- NOTE | 2017-09-04 18:46 | RADRPT ---
EXAM DATE/TIME: 09/04/2017 18:19 [facility] COMPARISON: No previous studies available for comparison. INDICATIONS : Patient complains of headache and sinusitis. RADIATION DOSE: 56.35 CTDIvol (mGy) MEDICAL HISTORY : Multple sclerosis. SURGICAL HISTORY : None. ENCOUNTER: Initial ACUITY: 1 day PAIN SCALE: 5/10 LOCATION: cranial TECHNIQUE: Multiple contiguous axial images were obtained of the head. Using automated exposure control and adj ustment of the mA and/or kV according to patient size, radiation dose was kept as low as reasonably a chievable to obtain optimal diagnostic quality images. DICOM format image data is available electro nically for review and comparison. FINDINGS: CEREBRUM: The ventricles are normal for age. White matter is abnormal. No evidence of midline shift, mass lesio n, hemorrhage or acute infarction. No extra-axial fluid collections are seen. POSTERIOR FOSSA: The cerebellum and brainstem are intact. The 4th ventricle is midline. The cerebellopontine angle i s unremarkable. EXTRACRANIAL: The visualized portion of the orbits is intact. SKULL: The calvaria is intact. No evidence of skull fracture. CONCLUSION: No acute intracranial abnormalities. Scattered white matter abnormalities characteristic of the histo ry of multiple sclerosis. Lorenzo De Los Santos MD on September 04, 2017 at 18:42 Board Certified Radiologist. This report was verified electronically.
--- NOTE | 2017-09-04 18:52 | RADRPT ---
EXAM DATE/TIME: 09/04/2017 18:22 [facility] COMPARISON: No previous studies available for comparison. INDICATIONS : Patient complains of headache and sinusitis. RADIATION DOSE: 9.28 CTDIvol (mGy) MEDICAL HISTORY : Multple sclerosis. SURGICAL HISTORY : None. ENCOUNTER: Initial ACUITY: 1 day PAIN SCORE: 5/10 LOCATION: cranial TECHNIQUE: Volumetric scanning of the paranasal sinuses was performed. Using automated exposure control and adj ustment of the mA and/or kV according to patient size, radiation dose was kept as low as reasonably a chievable to obtain optimal diagnostic quality images. DICOM format image data is available electro nically for review and comparison. FINDINGS: MAXILLARY SINUSES: Normal. No significant mucosal thickening or fluid. Infundibula are patent. No anomalous inferior orbital ethmoid (Bradley) air cells. ETHMOID SINUSES: Normal. No significant mucosal thickening or fluid. Fovea ethmoidal and lamina papyracea are symmet brandon and intact. SPHENOID SINUSES: Normal. No significant mucosal thickening or fluid. Sphenoethmoidal recesses are patent. No bony d ehiscence. FRONTAL SINUSES: Normal. No significant mucosal thickening or fluid. Frontal recesses are patent. No anomalous fron myrna air cells. NASAL FOSSA: Normal. No septal perforation or deviation. No vero bullosa or paradoxical turbinates are identifie d. OTHER: Normal. Limited views of the skull base and orbits are unremarkable. CONCLUSION: 1. No acute findings. Sinus ostia are patent. Lorenzo De Los Santos MD on September 04, 2017 at 18:48 Board Certified Radiologist. This report was verified electronically.
[2017-09-04] MEDS: CETIRIZINE HCL 10 MG TAB PO SCH (21:00)
[2017-09-04] MEDS: traZODone HCL 100 MG TAB PO SCH (21:15)
[2017-09-04] MEDS: LORazepam 1 MG TAB PO PRN (21:16)
[2017-09-04] MEDS: ACETAMINOPHEN 325 MG TAB PO PRN (21:16)
[2017-09-05 06:28] VITALS: BP 108/62; PULSE 86; RESP 17; TEMP 98.3; O2SAT 96
[2017-09-05] MEDS: SERTRALINE HCL 100 MG TAB PO SCH (08:54)
[2017-09-05] MEDS: CEFUROXIME AXETIL 250 MG TAB PO SCH (08:55)
[2017-09-05] MEDS: CHOLECALCIFEROL (VIT D3) 5000 UNIT CAP PO SCH (08:55)
[2017-09-05] MEDS ORDERED: TRAZ100T10 PO (09:26)
[2017-09-05] MEDS ORDERED: CETI10 PO (09:26)
[2017-09-05] MEDS ORDERED: BACL10TA PO (09:26)
[2017-09-05] MEDS ORDERED: SERT-129 PO (09:26)
--- NOTE | 2017-09-05 09:40 | HHI.DS ---
Psychiatry Discharge Summary Inpatient Psychiatric care?: Yes Advance Directive: No Reason Not Provided: Patient refuses Mental Health AdvanceDirective: No Health Care Proxy: No Admission Admission Date Sep 02, 2017 at 16:48 Admission Diagnosis: (1) Adjustment disorder with depressed mood ICD Code: F43.21 - Adjustment disorder with depressed mood Brief History This is a 47-year-old female with a history of multiple sclerosis, presenting under a [place] act initiated by [facility]'s office. According to the [place] act, the patient has admitted to being depressed since she is going through a separation and divorce with her . She told her niece, who is her caregiver at home that she wanted to burn the house down and that she was tired of living. She reportedly said she would rather give up on life and . Apparently in the main emergency department here at [facility], the patient stated she was not suicidal and that she was simply venting her frustration. However, with this physician, she indicated that she was very depressed and that she did have thoughts of suicide. She describes multiple symptoms of depression for several weeks, including depressed mood, anhedonia, suicidal thinking, anxiety, feelings of hopelessness and helplessness, decreased energy, irritability, social withdrawal, insomnia and appetite disturbance. She denies a history of alcoholism or substance abuse. She does have 2 children, who she apparently will not have custody of. There is some suggestion in her medical record that she has a history of bipolar disorder. Tobacco Use In Past 30 Days: No Tobacco Past 30 Days Alcohol Use: Never Hospital Course Patient is a 47-year-old woman, , with 2 children one whom lives with the father the other who is in foster care, unemployed on disability benefits, with past psychiatric history of depression with one previous psychiatric hospitalization here at [facility] in April 2016, 1 remote suicide attempt in her 20s via overdose, no history of self-injurious behavior, currently followed by an outpatient psychiatrist, Dr. Sawyer, currently on Zoloft 100 mg by mouth daily, amitriptyline 10 mg by mouth at bedtime, with a past medical history of multiple sclerosis, who was brought in under [place] act by police after patient stated she was going to burn down the house as well as stating that she has available to live for which she was transferred to the inpatient psychiatry/medical unit for further evaluation and management. Patient was started on sertraline 100mg PO daily and trazodone 100mg PO HS as well as continued on antibiotics for otitis media as managed by hospitalist which she has tolerated well. Patient continued to have improved mood was noted to be cooperative with staff, no behavioral dyscontrol during admission and was noted to have improved outlook; future oriented. She stated that she had stated that she would burn down the house in the context of argument with niece but states that she does not want to burn down her home because she lives there. She also reports not having SI and wanted to take a break from her niece. There have been relationship discord with her niece but is currently accepting having home health nurses to provide more services and support. Upon discharge patient reported feeling good denied any perceptual disturbances nor suicidal ideations or homicidal ideations. Patient agreed to continue treatment and follow up appointments for continuity of care. Patient advised to call 911 or go nearest ED in case of emergency. Patient agreed with plan Results Blood Pressure 108 / 62 Vital Signs Date Time Temp Pulse Resp B/P (MAP) Pulse Ox O2 Delivery O2 Flow Rate FiO2 09/05/17 06:28 98.3 86 17 108/62 (77) 96 09/02/17 06:00 Room Air Laboratory Tests Test 09/03/17 09:46 Random Glucose 143 MG/DL (74-106) Aspartate Amino Transf (AST/SGOT) 10 U/L (15-37) Estimat Glomerular Filtration Rate 69 ML/MIN (>89) 25-Hydroxy Vitamin D Total 13.8 ng/ML (30-100) Laboratory Results Test 09/03/17 09:46 Cholesterol Level 160 MG/DL (120-200) HDL Cholesterol 55.0 MG/DL (40.0-60.0) Hemoglobin A1c 5.3 % (4.3-6.0) LDL Cholesterol 92 MG/DL (0-99) Triglycerides Level 66 MG/DL (42-150) Summary of Procedures None Imaging Last Impressions Sinuses CT 09/04/17 0000 Signed Impressions: Service Date/Time: Monday, September 04, 2017 18:22 - CONCLUSION: 1. No acute findings. Sinus ostia are patent. Lorenzo De Los Santos MD Head CT 09/04/17 0000 Signed Impressions: Service Date/Time: Monday, September 04, 2017 18:19 - CONCLUSION: No acute intracranial abnormalities. Scattered white matter abnormalities characteristic of the history of multiple sclerosis. Lorenzo De Los Santos MD Pending results at discharge: No Medications # of Antipsychotic meds at D/C: 0 Approp Antipsych med options 1 - Minimum of three failed multiple trials of monotherapy. 2 - Documented plan to taper to monotherapy due to previous use of multiple meds OR cross-taper in progress at D/C. 3 - Documentation of augmentation of Clozapine. 4 - Justification other than those listed in allowable values 1-3, document here : Discharge Discharge Date: Sep 05, 2017 Discharge Diagnosis: (1) Adjustment disorder with depressed mood ICD Code: F43.21 - Adjustment disorder with depressed mood Pt Condition on Discharge: Stable Discharge Disposition: Disch w/ Home Health Serv Discharge Instructions Diet Instructions: Heart Healthy Diet Activities you can perform: Weight Bearing as Isiah Scheduled Appointment: [facility] Appointment Date: Sep 06, 2017 Appointment Time: 01:00pm Discharge Time > 30 minutes Mental Status Examination Appearance: Appropriate Consciousness: Alert Orientation: x4 Motor Activity: Other Speech: Unremarkable Language: Adequate Fund of Knowledge: Adequate Attention and Concentration: Adequate Memory: Unremarkable Mood: Sad, Anxious Affect: Sad (less so today), Anxious Thought Process & Associations: Intact Thought Content: Appropriate Hallucination Type: None Delusion Type: None Suicidal Ideation: Yes (denies today) Suicidal Plan: No Suicidal Intention: No Homicidal Ideation: No Homicidal Plan: No Homicidal Intention: No Insight: Fair Judgment: Impulsive Discharge/Advance Care Plan Health Problems: (1) Adjustment disorder with depressed mood Goals to promote your health * To prevent worsening of your condition and complications * To maintain your health at the optimal level Directions to meet your goals Take your medications as prescribed Follow your dietary instruction Follow activity as directed Keep your appointments as scheduled Take your immunizations and boosters as scheduled If your symptoms worsen call your PCP, if no PCP go to Urgent Care Center or Emergency Room For 15/04 questions related to your inpatient stay or results of tests pending at discharge, please contact Dr. Fermin Coombs at Smoking is Dangerous to Your Health. Avoid second hand smoking Fermin Coombs MD Sep 05, 2017 09:40
[2017-09-05] MEDS ORDERED: CEFU1TAB18 PO (10:47)
[2017-09-05] MEDS: ENOXAPARIN SODIUM 40 MG/0.4 ML SYRINGE SQ SCH (11:03)
== END 2017-09-05 11:45 | disposition home health service (06) | DRG 881 ==
LOC: NEPD 21:41 → NEDA 09-02 16:48 → H260 09-02 17:26 → H4EA 09-02 19:48
PROVIDERS: ADMIT Student in an Organized Health Care Education/Training Program; ATTEND Student in an Organized Health Care Education/Training Program
DX: F43.21 Adjustment disorder with depressed mood (principal); G35 Multiple sclerosis; R45.851 Suicidal ideations; J01.90 Acute sinusitis, unspecified; H66.92 Otitis media, unspecified, left ear; R73.9 Hyperglycemia, unspecified; F17.200 Nicotine dependence, unspecified, uncomplicated; Z63.5 Disruption of family by separation and divorce; Z88.0 Allergy status to penicillin; Z91.5 Personal history of self-harm; Z91.14 Patient's other noncompliance with medication regimen
CPT/HCPCS: 70450; 70486; 80053; 80061; 80307; 81001; 82306; 82607; 83036; 84443; 84703; 85025; 93005; 99285; J1650